=== PATIENT | female | born 1950 | race Caucasian/White ===

== ENCOUNTER 2019-10-15 07:47 | Day surgery (SDC) | payer OTHER, SELFPAY ==
[2019-10-15] VITALS (7 sets, daily range): BP systolic 123–176; BP diastolic 69–96; PULSE 89–111; RESP 13–20; TEMP 36.4–36.7; O2SAT 97–99; BMI 24.3
[2019-10-15] MEDS: SODIUM CHLORIDE 0.9% 1,000 ML 200 ML IV ×2 (08:21→09:22)
--- NOTE | 2019-10-15 08:58 | PM.PREOP ---
Pre-operative Note Interval Note History & Physical reviewed/Exam performed by Physician: Yes Changes to H&P: No
--- NOTE | 2019-10-15 09:41 | PM.OP.ENDO ---
Operative Date/Time/Diagnoses Date of procedure: 10/15/19 Time of procedure: 09:41 Pre-op diagnosis: positive cologuard test Post-op diagnosis: other (diverticulosis, scarring from prior diverticulitis, tortuous colon, no polyps or masses seen) Procedure & Clinicians Study performed: Diagnostic colonoscopy Same procedure as scheduled: Yes Indications: Positive cologuard test Surgeon: Lila Farrell Procedure Notes SCOAP/Timeout: Performed Procedure in detail: The patient was brought to the room and placed in left lateral decubitus position with all bony prominences padded. A time-out was performed and then the patient was given procedural sedation starting with 4 mg of Versed and 100 mcg of fentanyl. A total of 5 mg of Versed and 200 micro g of fentanyl were given for the entire procedure. Vitals were monitored throughout the procedure and remained stable. Once adequately sedated the procedure was begun. A rectal exam was performed revealing no abnormalities. The colonoscope was then introduced to the rectum and advanced to the cecum in the usual fashion. The colon was very tortuous due to scarring consistent with prior episodes of diverticulitis.The cecum was identified by the appendiceal orifice, the mucosal tri-fold, and the ileocecal valve. The scope was then retracted while rotating side to side and examining each mucosal fold. No polyps or masses were seen. There was extensive diverticulosis throughout the sigmoid and descending colon. There was heavy scar tissue in the sigmoid colon consistent with prior episodes of diverticulitis. At the conclusion of the procedure small grade 1-2 internal hemorrhoids without stigmata of bleeding were seen]. The scope was then withdrawn from the rectum the procedure was concluded. The patient tolerated the procedure well and was transferred to the PACU in stable condition. Scope withdrawal time: 17 Sedation minutes: 32 Findings: diverticulosis Specimen(s): none sent Complications: none Impression: Diverticulosis and evidence of history of chronic diverticulitis Post-procedure Recommendations: Colonscopy in 10 years (Or repeat cologuard test as indicated) Follow up: as needed Disposition: PACU
[2019-10-15] MEDS: fentaNYL 250 MCG/5 ML INJ IV (09:43)
[2019-10-15] MEDS: MIDAZOLAM 5 MG/5 ML VIAL IV (09:43)
--- NOTE | 2019-10-15 09:56 | SUR.PHASEI ---
Dr. Farrell notified patient's hr still above 100, patient denied chest pain, nausea or SOB. HR regular. Patient to finish IV fluid bag and encourage po fluids per MD, patient may discharge.
== END 2019-10-15 10:37 | disposition home or self-care (01) ==
PROVIDERS: PCP Family Medicine; Visit Provider Surgery
PROC: 0DJD8ZZ Inspection of Lower Intestinal Tract, Via Natural or Artificial Opening Endoscopic (ICD-10-PCS; CPT 45378; principal; 2019-10-15 09:15)
DX: K57.30 Diverticulosis of large intestine without perforation or abscess without bleeding (principal); Z87.19 Personal history of other diseases of the digestive system; K64.0 First degree hemorrhoids
CPT/HCPCS: 45378; 99152; 99153; J2250; J3010